=== PATIENT | male | born 1955 | race Hispanic/Latino ===

== ENCOUNTER 2017-12-31 07:27 | Day surgery (SDC) | payer BC, OTHER ==
[2017-12-31] MEDS ORDERED: Lactated Ringer's 500 ML IV ONE (07:49)
[2017-12-31] MEDS ORDERED: Propofol 10 mg/ml Inj (20 ML) ONE (08:14)
[2017-12-31] MEDS ORDERED: Midazolam 2 MG/2 ML VIAL ONE (08:49)
[2017-12-31 09:28] VITALS: TEMP 97
[2017-12-31 10:05] VITALS: BP 112/66; PULSE 73; RESP 17; O2SAT 100
== END 2017-12-31 10:06 | disposition home or self-care (01) ==
LOC: H.ENDO 07:27
PROVIDERS: ATTEND Internal Medicine Gastroenterology
DX: Z12.11 Encounter for screening for malignant neoplasm of colon (principal); E11.9 Type 2 diabetes mellitus without complications; K21.9 Gastro-esophageal reflux disease without esophagitis; K64.8 Other hemorrhoids
CPT/HCPCS: 45378; J2250; J2704; J7120